=== PATIENT | female | born 1945 | race Caucasian/White ===

== ENCOUNTER 2017-11-06 12:43 | Emergency (ER) | payer OTHER ==
[~2017-11-06] VITALS: Ht 147.3 cm; Wt 56.2 kg
[~2017-11-06 12:43] MED LIST: ASPIRIN PO; BITREX PO; CLARITIN-D 12 HOUR TAB ER PO; COUMADIN1 MG; COUMADIN5 MG PO; INTEGRA PLUS C1 EACH PO; Levsin/Sl 0.125 MG TAB.SUBL SL; Mucinex 600 MG TABLET.SA PO; NEURIN PO; Neurin-Sl Tablet Sl SL; SYNTHROID50 MCG; SYNTHROID88 MCG PO; Synthroid PO; vit b12
== END 2017-11-06 18:12 | disposition home or self-care (01) ==
LOC: ER 12:43 → CPU-OBS 12:58 → ER 12:58
DX: R07.89 Other chest pain (principal)

== ENCOUNTER 2017-11-24 07:24 | Outpatient (CLI) | payer OTHER | END 2017-11-24 07:27 | disposition home or self-care (01) | LOC: NUCLEAR 07:24 | DX: R07.89 Other chest pain (principal); Z01.810 Encounter for preprocedural cardiovascular examination; R94.31 Abnormal electrocardiogram [ECG] [EKG] | CPT/HCPCS: 78452; 93017; A9500; J0153 ==

== ENCOUNTER → 2018-11-26 | Outpatient (CLI) | payer OTHER | END | disposition home or self-care (01) | LOC: NUCLEAR 07:57 | DX: I26.99 Other pulmonary embolism without acute cor pulmonale (principal) | CPT/HCPCS: 78580; A9540 ==

== ENCOUNTER 2020-01-10 14:19 | Emergency (ER) | payer OTHER ==
[~2020-01-10] VITALS: Ht 152.4 cm; Wt 56.7 kg
[2020-01-10] MEDS ORDERED: ATORVASTATIN CA40 MG (14:50)
[2020-01-10] MEDS ORDERED: LEVSIN/SL0.125 MG SL (20:43)
== END 2020-01-10 21:16 | disposition home or self-care (01) ==
LOC: ER 14:19
DX: R10.32 Left lower quadrant pain (principal)

== ENCOUNTER 2022-03-25 07:18 | Outpatient (CLI) | payer OTHER ==
[~2022-03-25 07:18] MED LIST changes: +ATORVASTATIN CA40 MG; +LEVSIN/SL0.125 MG SL
== END 2022-03-25 07:27 | disposition home or self-care (01) ==
LOC: NUCLEAR 07:18
PROVIDERS: ATTEND Internal Medicine Cardiovascular Disease
DX: I25.10 Atherosclerotic heart disease of native coronary artery without angina pectoris (principal)
CPT/HCPCS: 78452; 93017; A9500; J0153

== ENCOUNTER 2024-12-11 09:21 | Inpatient (IN) | payer OTHER ==
[~2024-12-11] VITALS: Ht 149.9 cm; Wt 51.7 kg
--- NOTE | 2024-12-11 09:48 | NUR ---
PTE ALERTA Y ORIENTADA X3 REFIERE VENIR A ABDIAS DEBIDO A QUE HACE MAS O MENOS DINO SEMANA SE LASTIMO EL TOBILLO DE LA PIERNA DERECHA EL CUAL LE PRODUJO DOLOR. ELIAS EN ADICION SE LEVANTO EL FABIANA DE HOY CON LA PIERNA INFLAMADA. SE MIDEN S/V Y SE UBICA.
[2024-12-11] MEDS ORDERED: TRAMADOL HCL 50 MG TABLET PO ONE (10:15)
[2024-12-11 12:01] LABS: BASO % 0.3 % (0.1-1.2); EOS # 0.04 (0.04-0.54); EOS % 0.3 % (0.7-7.0); LYMPH # 1.15 (1.18-3.74); LYMPH % 9.6 % (19.3-53.1); MEAN PLATELET VOLUME 10.20 fl (9.4-12.4); MONO # 0.74 (0.24-0.82); MONO % 6.2 % (4.7-12.5); NEUT # 9.95 (1.56-6.13); NEUT % 83.3 % (34.0-71.1); RED CELL DISTRIBUTION WIDTH 13.6 % (11.6-14.4)
[2024-12-11 12:28] LABS: ALT/SGPT 18.0 U/L (12-78); AST/SGOT 17.0 U/L (15-37); BILIRUBIN TOTAL 0.43 mg/dL (0.3-1.2); BUN CREA RATIO 31.0 (7.0-25.0); CREATININE SERUM 1.29 mg/dL (0.55-1.02); GFR 39.66; GLOBULINA 4.5 G/DL (2.4-3.5); GLUCOSE FASTING 124.0 mg/dL (65-100); OSMOLALITY SERUM 291.0 MOSM/KG (275-295)
--- NOTE | 2024-12-11 13:08 | NUR ---
SE ORIENTA A PTE SOBRE TX MEDICO, LA MISMA REFIERE ENTENDER Y ACEPTAR SARBJIT. SE COLECTAN MUESTRAS DE LABORATORIO BAJO MEDIDAS ASEPTICAS.
[2024-12-11] MEDS ORDERED: ENOXAPARIN SODIUM 60 MG/0.6 ML SYRINGE SUBCUTANEO ONE (15:30)
[2024-12-11] MEDS ORDERED: 0.9 % SODIUM CHLORIDE 1,000 ML IV ONE (15:30)
[2024-12-11 17:13] LABS: INR 1.12
[2024-12-11] MEDS ORDERED: 0.9 % SODIUM CHLORIDE 1,000 ML IV SCH (17:15)
[2024-12-11] MEDS ORDERED: FAMOTIDINE/PF 20 MG in 0.9 % SODIUM CHLORIDE 8 ML IV PUSH SCH (17:16)
[2024-12-11] MEDS ORDERED: SODIUM POLYSTYRENE SULFONATE 15 G/4 TSP TSP PO SCH (17:16)
[2024-12-11] MEDS ORDERED: ACETAMINOPHEN 500 MG GEL..CAP PO PRN (17:30)
[2024-12-11] MEDS ORDERED: GABAPENTIN 300 MG CAPSULE PO ONE (17:30)
[2024-12-11 19:28] LABS: URINE APPEARANCE Cloudy; URINE BILIRRUBIN Small (NEGATIVE); URINE BLOOD Negative; URINE COLOR Orange; URINE GLUCOSE Negative (NEGATIVE); URINE KETONE Negative (NEGATIVE); URINE LEUKOCYTE Small; URINE NITRATE Positive; URINE PROTEIN 30 (NEGATIVE); URINE UROBILINOGEN 1.0 E.U./dl
[2024-12-11 20:05] LABS: URINE BACTERIA 1839.5 uL (0.0-1933); URINE CAST 3.22 uL (0.0-1.40); URINE EPITHELIAL CELLS 192.9 uL (0.0-38.8); URINE RBC 7.1 uL (0.0-20.8); URINE WBC 33.5 uL (0.0-23.2)
[2024-12-11 20:12] LABS: TYPE CELLS SQUAMOUS
[2024-12-11 22:54] VITALS: BP 132/60
[2024-12-12 02:38] VITALS: BP 116/54; O2SAT 95
[2024-12-12] MEDS ORDERED: ENOXAPARIN SODIUM 60 MG/0.6 ML SYRINGE SUBCUTANEO SCH (05:00)
[2024-12-12] MEDS ORDERED: IRON FUM,PS/FOLIC/BCOMP,C NO.9 1 CAP CAPSULE PO SCH (09:00)
[2024-12-12 09:02] VITALS: BP 111/52; O2SAT 95
[2024-12-12 17:53] VITALS: BP 103/62
[2024-12-13 01:27] VITALS: BP 119/61; O2SAT 92
[2024-12-13 05:51] LABS: BASO % 0.4 % (0.1-1.2); EOS # 0.23 (0.04-0.54); EOS % 3.0 % (0.7-7.0); LYMPH # 1.69 (1.18-3.74); LYMPH % 21.7 % (19.3-53.1); MEAN PLATELET VOLUME 10.40 fl (9.4-12.4); MONO # 0.79 (0.24-0.82); MONO % 10.2 % (4.7-12.5); NEUT # 4.99 (1.56-6.13); NEUT % 64.1 % (34.0-71.1); RED CELL DISTRIBUTION WIDTH 13.5 % (11.6-14.4)
[2024-12-13 06:33] LABS: ALT/SGPT 15.0 U/L (12-78); AST/SGOT 15.0 U/L (15-37); BILIRUBIN TOTAL 0.36 mg/dL (0.3-1.2); BUN CREA RATIO 29.0 (7.0-25.0); CREATININE SERUM 1.05 mg/dL (0.55-1.02); GFR 50.3; GLOBULINA 3.4 G/DL (2.4-3.5); GLUCOSE FASTING 100.0 mg/dL (65-100); OSMOLALITY SERUM 297.0 MOSM/KG (275-295)
[2024-12-13] MEDS ORDERED: APIXABAN 2.5 MG TABLET PO SCH (09:00)
[2024-12-13 09:07] VITALS: BP 116/70; O2SAT 99
[2024-12-13] MEDS ORDERED: SODIUM CHLORIDE 0.45 % 1,000 ML IV SCH (11:00)
[2024-12-13] MEDS ORDERED: Cyanocobalamin/Mecobalamin 1 TAB.SL SL SCH (17:00)
[2024-12-13] MEDS ORDERED: SOD FERRIC GLUC COMPLX/SUCROSE 62.5 MG/5 ML AMPUL IV SCH (17:00)
[2024-12-13 17:17] LABS: FE 52.0 ug/dl (50-170)
[2024-12-13 18:54] VITALS: BP 122/50; O2SAT 97
[2024-12-14 03:20] VITALS: BP 102/55; O2SAT 99
[2024-12-14 10:34] LABS: ob POSITIVE (NEGATIVE)
[2024-12-14 11:20] VITALS: BP 133/71
[2024-12-14 11:41] LABS: BASO % 0.5 % (0.1-1.2); EOS # 0.25 (0.04-0.54); EOS % 3.2 % (0.7-7.0); LYMPH # 1.18 (1.18-3.74); LYMPH % 15.1 % (19.3-53.1); MEAN PLATELET VOLUME 9.80 fl (9.4-12.4); MONO # 0.89 (0.24-0.82); MONO % 11.4 % (4.7-12.5); NEUT # 5.42 (1.56-6.13); NEUT % 69.0 % (34.0-71.1); RED CELL DISTRIBUTION WIDTH 15.4 % (11.6-14.4)
[2024-12-14 16:42] VITALS: BP 142/60; O2SAT 100
[2024-12-15 03:13] VITALS: BP 134/66; O2SAT 98
[2024-12-15 07:26] LABS: BASO % 0.6 % (0.1-1.2); EOS # 0.28 (0.04-0.54); EOS % 3.2 % (0.7-7.0); LYMPH # 1.67 (1.18-3.74); LYMPH % 19.4 % (19.3-53.1); MEAN PLATELET VOLUME 10.00 fl (9.4-12.4); MONO # 1.09 (0.24-0.82); NEUT # 5.45 (1.56-6.13); NEUT % 63.2 % (34.0-71.1); RED CELL DISTRIBUTION WIDTH 15.2 % (11.6-14.4)
[2024-12-15 07:34] LABS: MONO % 12.6 % (4.7-12.5)
[2024-12-15 09:01] VITALS: BP 141/63; O2SAT 97
[2024-12-15 17:44] VITALS: BP 133/42; O2SAT 97
[2024-12-15] MEDS ORDERED: ACETAMINOPHEN 500 MG GEL..CAP PO PRN (22:30)
[2024-12-16 00:11] VITALS: BP 149/65; O2SAT 99
[2024-12-16 06:32] LABS: BASO % 0.8 % (0.1-1.2); EOS # 0.30 (0.04-0.54); EOS % 3.8 % (0.7-7.0); LYMPH # 1.59 (1.18-3.74); LYMPH % 19.9 % (19.3-53.1); MEAN PLATELET VOLUME 10.20 fl (9.4-12.4); MONO # 0.96 (0.24-0.82); MONO % 12.0 % (4.7-12.5); NEUT # 4.99 (1.56-6.13); NEUT % 62.5 % (34.0-71.1); RED CELL DISTRIBUTION WIDTH 14.8 % (11.6-14.4)
[2024-12-16 06:57] LABS: ALT/SGPT 17.0 U/L (12-78); AST/SGOT 20.0 U/L (15-37); BILIRUBIN TOTAL 0.43 mg/dL (0.3-1.2); BUN CREA RATIO 16.0 (7.0-25.0); CREATININE SERUM 0.77 mg/dL (0.55-1.02); GFR 71.95; GLOBULINA 3.4 G/DL (2.4-3.5); GLUCOSE FASTING 85.0 mg/dL (65-100); OSMOLALITY SERUM 286.0 MOSM/KG (275-295)
[2024-12-16 09:17] LABS: FOLIC ACID > 20.00 ng/ml (4.78-20)
[2024-12-16 10:06] VITALS: BP 133/49; O2SAT 98
[2024-12-16] MEDS ORDERED: POLYETHYLENE GLYCOL 3350 17 GM BLIST.PACK PO SCH (10:24)
[2024-12-16] MEDS ORDERED: PENTOXIFYLLINE 400 MG TABLET.SA PO SCH (10:24)
[2024-12-16] MEDS ORDERED: APIXABAN 5 MG TABLET PO SCH (17:00)
[2024-12-16 17:21] VITALS: BP 120/50; O2SAT 96
[2024-12-17] VITALS: BP 138/48; O2SAT 95
[2024-12-17 09:28] VITALS: BP 144/57; O2SAT 94
[2024-12-17] MEDS ORDERED: FAMOTIDINE/PF 20 MG in 0.9 % SODIUM CHLORIDE 8 ML IV PUSH NR (13:00)
[2024-12-17 17:17] VITALS: BP 122/61; O2SAT 95
[2024-12-17] MEDS ORDERED: FAMOTIDINE/PF 20 MG in 0.9 % SODIUM CHLORIDE 8 ML IV PUSH SCH (21:00)
[2024-12-18 02:25] VITALS: BP 124/68; O2SAT 95
[2024-12-18 06:22] LABS: BASO % 0.6 % (0.1-1.2); EOS # 0.30 (0.04-0.54); EOS % 3.4 % (0.7-7.0); LYMPH # 1.58 (1.18-3.74); LYMPH % 17.8 % (19.3-53.1); MEAN PLATELET VOLUME 9.80 fl (9.4-12.4); MONO # 1.07 (0.24-0.82); MONO % 12.0 % (4.7-12.5); NEUT # 5.76 (1.56-6.13); NEUT % 64.7 % (34.0-71.1); RED CELL DISTRIBUTION WIDTH 14.7 % (11.6-14.4)
[2024-12-18 07:16] LABS: ALT/SGPT 16.0 U/L (12-78); AST/SGOT 21.0 U/L (15-37); BILIRUBIN TOTAL 0.38 mg/dL (0.3-1.2); BUN CREA RATIO 13.0 (7.0-25.0); CREATININE SERUM 0.82 mg/dL (0.55-1.02); GFR 66.91; GLOBULINA 3.5 G/DL (2.4-3.5); GLUCOSE FASTING 92.0 mg/dL (65-100); OSMOLALITY SERUM 286.0 MOSM/KG (275-295)
[2024-12-18 09:16] VITALS: BP 137/52; O2SAT 93
[2024-12-18] MEDS ORDERED: MIDAZOLAM HCL 2 MG/2 ML VIAL IV ONE (13:00)
[2024-12-18] MEDS ORDERED: NAPH,MB-DB/K PH,MBDB 1 PKT PACKET PO NR (13:15)
[2024-12-18] MEDS ORDERED: ELIQUIS5 MG PO (16:21)
[2024-12-18] MEDS ORDERED: PENTOXIFYLLINE400 MG PO (16:22)
[2024-12-18] MEDS ORDERED: INTEGRA PLUS C1 EACH PO (16:22)
[2024-12-18] MEDS ORDERED: B COMPLEX1 EACH PO (16:24)
== END 2024-12-18 17:05 | disposition home or self-care (01) | DRG 300 ==
LOC: ER 09:41 → MEDI 18:12
PROVIDERS: Internal Medicine; Internal Medicine Hematology & Oncology; Preventive Medicine Public Health & General Preventive Medicine; ADMIT Internal Medicine; ATTEND Internal Medicine
PROC: B54BZZZ Ultrasonography of Right Lower Extremity Veins (ICD-10-PCS; principal; 2024-12-11)
PROC: BT4JZZZ Ultrasonography of Kidneys and Bladder (ICD-10-PCS; 2024-12-11)
PROC: 30233N1 Transfusion of Nonautologous Red Blood Cells into Peripheral Vein, Percutaneous Approach (ICD-10-PCS; 2024-12-13)
PROC: 0DJ08ZZ Inspection of Upper Intestinal Tract, Via Natural or Artificial Opening Endoscopic (ICD-10-PCS; 2024-12-18)
DX: I82.421 Acute embolism and thrombosis of right iliac vein (principal); E72.12 Methylenetetrahydrofolate reductase deficiency; N17.8 Other acute kidney failure; R60.0 Localized edema; E03.9 Hypothyroidism, unspecified; K29.40 Chronic atrophic gastritis without bleeding; K44.9 Diaphragmatic hernia without obstruction or gangrene; D64.9 Anemia, unspecified